=== PATIENT | male | born 1950 | race Caucasian/White ===

== ENCOUNTER 2020-06-30 01:14 | Emergency (ER) | payer SELFPAY ==
[2020-06-30 02:53] LABS: Absolute Lymphocytes (CBC) 1.1 K/uL (0.7-4.9); MPV 9.2 fL (7.6-11.3)
[2020-06-30 02:54] LABS: Protime INR 1.16
[2020-06-30 03:09] LABS: Basophils % 0.9 % (0-1.3); Lymphocytes % 20.1 % (15.3-44.8); RBC Red Blood Cell Count 3.91 M/uL (4.33-5.43)
[2020-06-30 03:25] LABS: ALT/SGPT 35 U/L (12-78); AST/SGOT 34 U/L (15-37); Albumin 3.9 g/dL (3.4-5.0); Alkaline Phosphatase 82 U/L (45-117); BUN Blood Urea Nitrogen 38 mg/dL (7-18); Bicarbonate 22 mmol/L (21-32); Bilirubin Direct 0.3 mg/dL (0-0.2); Glucose Level 104 mg/dL (74-106); Potassium 4.8 mmol/L (3.5-5.1); Protein, Total 7.9 g/dL (6.4-8.2); Sodium Level 141 mmol/L (136-145); Troponin (Emerg Dept Use Only) < 0.02 ng/mL (0.0-0.045)
[2020-06-30] MEDS ORDERED: LACTULOSE 20 GM/30 ML UCUP ONE (03:59)
--- NOTE | 2020-06-30 04:40 | ER ---
Nurse's Notes [facility] Name: Braulio Friedman Age: 70 yrs Sex: Male : 1950 Arrival Date: 06/30/2020 Time: 01:17 Bed 4 Private MD: Diagnosis: Hepatic Encephalopathy Presentation: 06/30 01:39 Chief complaint: EMS states: was toned for Pt being more disoriented and weak. Pt with Hx of Hepatic Encephalopathy due to Liver Cirrhosis. Pt was just discharged from [facility] for same reason. Coronavirus screen: Client denies travel out of the [place] in the last 14 days. At this time, the client does not indicate any symptoms associated with coronavirus-19. Ebola Screen: Patient negative for fever greater than or equal to 101.5 degrees Fahrenheit, and additional compatible Ebola Virus Disease symptoms Patient denies exposure to infectious person. Initial Sepsis Screen: Does the patient meet any 2 criteria? No. Patient's initial sepsis screen is negative. Does the patient have a suspected source of infection? Yes:. Risk Assessment: Do you want to hurt yourself or someone else? Patient reports no desire to harm self or others. Onset of symptoms was June 30, 2020. 01:39 Method Of Arrival: EMS: [facility] 01:39 Acuity: LORIN 3 Historical: - Allergies: 01:39 PENICILLINS; 01:39 Isosorbide Dinitrate; 01:39 Isosorbide Mononitrate; - Home Meds: 01:39 carbidopa-levodopa 25-100 mg Oral TbER 1 tab 3 times per day [Active]; spironolactone wh 50 mg Oral tab 1 tab once daily [Active]; tamsulosin 0.4 mg oral cp24 1 cap once daily [Active]; pantoprazole 40 mg oral TbEC 1 tab 2 times per day [Active]; magnesium oxide 400 mg Oral cap twice a day [Active]; nitroglycerin 0.4 mg SL subl 1 tab every 5 minutes [Active]; sertraline 25 mg oral tab 1 tab once daily [Active]; Xifaxan 550 mg oral tab 1 tab 2 times per day [Active]; - PMHx: 01:39 Liver Cancer; Liver Cirrhosis; Myocardial infarction; Hypertension; Hepatic wh Encephalopathy; - Immunization history:: Adult Immunizations up to date. - Social history:: Smoking status: Patient/guardian denies using. Screenin:42 Abuse screen: Denies threats or abuse. Denies injuries from another. Nutritional screening: No deficits noted. Tuberculosis screening: No symptoms or risk factors identified. Fall Risk Secondary diagnosis (15 points) Hepatic Encephalopathy. Assessment: 01:44 General: Appears in no apparent distress. Behavior is cooperative. Pain: Denies pain. Neuro: Level of Consciousness is awake, obeys commands, confused, Oriented to person. Cardiovascular: Heart tones S1 S2. Respiratory: Airway is patent Respiratory effort is even, unlabored, Respiratory pattern is regular, symmetrical, Breath sounds are clear bilaterally. GI: Abdomen is flat, non-distended, Abd is soft and non tender X 4 quads. : No signs and/or symptoms were reported regarding the genitourinary system. EENT: No signs and/or symptoms were reported regarding the EENT system. Derm: Skin is intact, is healthy with good turgor, Skin is pink, warm \T\ dry. normal. Musculoskeletal: Circulation, motion, and sensation intact. 02:45 Reassessment: Patient appears in no apparent distress at this time. No changes from previously documented assessment. Patient and/or family updated on plan of care and expected duration. Pain level reassessed. 03:06 Reassessment: Pt family initially refusing EKG stated PT didn't have chest pain, explained that we are just trying to check for heart rhythm or any cause of the weakness. Family agreed to EKG. Pt family refusing CXRAY stating Pt doesn't need to be xrayed instead just needed blood work for Ammonia, family stated we are just milking Medicare for unnecessary test, notified Charge. 03:09 Reassessment: Charge Nurse at bedside explaining POC. 04:00 Reassessment: Patient appears in no apparent distress at this time. No changes from previously documented assessment. Patient and/or family updated on plan of care and expected duration. Pain level reassessed. 05:28 Reassessment: Report given to Kobi Dickerson RN. 06:11 Reassessment: Patient appears in no apparent distress at this time. No changes from previously documented assessment. Patient and/or family updated on plan of care and expected duration. Pain level reassessed. Vital Signs: 01:44 BP 153 / 80; Pulse 74; Resp 18; Temp 98; Pulse Ox 99% ; Weight 67.13 kg; Height 6 ft. 1 wh in. (185.42 cm); 03:09 BP 153 / 78; Pulse 68; Resp 18; Pulse Ox 98% on R/A; wh 04:00 BP 127 / 71; Pulse 69; Resp 16; Pulse Ox 100% on R/A; wh 05:28 BP 110 / 60; Pulse 72; Resp 16; Pulse Ox 100% on R/A; wh 06:11 BP 119 / 74; Pulse 67; Resp 16; Pulse Ox 100% on R/A; wh 01:44 Body Mass Index 19.53 (67.13 kg, 185.42 cm) ED Course: 01:17 Patient arrived in ED. mw2 01:23 Richard Pritchard MD is Attending Physician. [facility] 01:34 Connie Jack is Primary Nurse. wh 01:41 Triage completed. wh 01:45 Patient has correct armband on for positive identification. Placed in gown. Bed in low wh position. Call light in reach. Side rails up X 1. classroom monitor on. Pulse ox on. NIBP on. 01:46 Arm band placed on right wrist. wh 02:00 Missed attempt(s): 22 gauge in left forearm. Bleeding controlled, band aid applied, catheter tip intact. 02:35 Inserted saline lock: 22 gauge in right forearm, using aseptic technique. Blood lp1 collected. 02:56 CT Head Brain wo Cont In Process Unspecified. EDMS 04:03 initiated transfer with Nolvia Costello from [facility] transfer center. mw2 04:23 doc to doc with the hospitalist contact center rep at [facility]. mw2 04:43 administrative approval given by Nolvia Costello/ patient has been accepted to [address] 10 C bed 1041/ Dr. Shukla has accepted the patient in transfer/ report to be called to [phone]. 06:11 No provider procedures requiring assistance completed. Patient transferred, IV remains in place. 07:34 Chest Single View XRAY In Process Unspecified. EDMS Administered Medications: 03:50 Drug: Lactulose 20 grams Volume: 30 ml; Route: PO; 06:11 Follow up: Response: No adverse reaction Outcome: 04:39 ER care complete, transfer ordered by MD. barker 06:12 Transferred by ground EMS to [facility], Transfer form completed. X-rays sent w/ patient. Note: Report given to [facility] 06:12 Condition: stable 06:12 Instructed on the need for transfer. 06:12 Patient left the ED. Signatures: Dispatcher [employer] Kendra Martinez RN RN lp1 Connie Jack Eileen Nj mw2 Richard Pritchard MD MD mh7 Corrections: (The following items were deleted from the chart) 01:44 01:34 Immunization history: Adult Immunizations unknown, [facility]
--- NOTE | 2020-06-30 04:40 | EDPHYS ---
Physician Documentation [facility] Name: Braulio Friedman Age: 70 yrs Sex: Male : 1950 Arrival Date: 06/30/2020 Time: 01:17 Bed 4 Private MD: ED Physician Richard Pritchard HPI: 06/30 02:36 This 70 yrs old Male presents to ER via EMS with complaints of General mh7 Weakness. 02:36 The patient presents with confusion. Onset: The symptoms/episode began/occurred today. mh7 Possible causes: Hepatic encephalopathy. Associated signs and symptoms: Pertinent positives: confusion, Pertinent negatives: abdominal pain, agitation, combativeness, diarrhea, shortness of breath, vomiting, weakness. Current symptoms: In the emergency department the patient's symptoms are unchanged from the initial presentation. Patient's baseline: Neuro: alert but confused, Motor: no deficits, Ambulation: walks with assist only, uses cane, Speech: normal for age, The patient has a previous history of hepatic encephalopathy. 02:55 Unable to obtain HPI due to altered mental status. The patient has experienced similar mh7 episodes in the past, multiple times. Historical: - Allergies: 01:39 PENICILLINS; wh 01:39 Isosorbide Dinitrate; wh 01:39 Isosorbide Mononitrate; wh - Home Meds: 01:39 carbidopa-levodopa 25-100 mg Oral TbER 1 tab 3 times per day [Active]; spironolactone wh 50 mg Oral tab 1 tab once daily [Active]; tamsulosin 0.4 mg oral cp24 1 cap once daily [Active]; pantoprazole 40 mg oral TbEC 1 tab 2 times per day [Active]; magnesium oxide 400 mg Oral cap twice a day [Active]; nitroglycerin 0.4 mg SL subl 1 tab every 5 minutes [Active]; sertraline 25 mg oral tab 1 tab once daily [Active]; Xifaxan 550 mg oral tab 1 tab 2 times per day [Active]; - PMHx: 01:39 Liver Cancer; Liver Cirrhosis; Myocardial infarction; Hypertension; Hepatic wh Encephalopathy; - Immunization history:: Adult Immunizations up to date. - Social history:: Smoking status: Patient/guardian denies using. ROS: 02:55 Unable to obtain ROS due to altered mental status. mh7 Exam: 02:55 Head/Face: Normocephalic, atraumatic. Eyes: Pupils equal round and reactive to light, mh7 extra-ocular motions intact. Lids and lashes normal. Conjunctiva and sclera are non-icteric and not injected. Cornea within normal limits. Periorbital areas with no swelling, redness, or edema. Neck: Trachea midline, no thyromegaly or masses palpated, and no cervical lymphadenopathy. Supple, full range of motion without nuchal rigidity, or vertebral point tenderness. No Meningismus. Chest/axilla: Normal chest wall appearance and motion. Nontender with no deformity. No lesions are appreciated. Cardiovascular: Regular rate and rhythm with a normal S1 and S2. No gallops, murmurs, or rubs. Normal PMI, no JVD. No pulse deficits. Respiratory: Lungs have equal breath sounds bilaterally, clear to auscultation and percussion. No rales, rhonchi or wheezes noted. No increased work of breathing, no retractions or nasal flaring. Abdomen/GI: Soft, non-tender, with normal bowel sounds. No distension or tympany. No guarding or rebound. No evidence of tenderness throughout. Back: No spinal tenderness. No costovertebral tenderness. Full range of motion. Skin: Warm, dry with normal turgor. Normal color with no rashes, no lesions, and no evidence of cellulitis. MS/ Extremity: Pulses equal, no cyanosis. Neurovascular intact. Full, normal range of motion. 02:55 Constitutional: The patient appears in no acute distress, alert, awake, confused 02:55 Neuro: Orientation: to person, Mentation: confused, Memory: unable to test, the patient refuses to cooperate, Cranial nerves: unable to test, the patient refuses to cooperate, Cerebellar function: unable to test, the patient refuses to cooperate, Motor: moves all fours, Sensation: is normal, Gait: not tested. Deep tendon reflexes are normal, Babinski testing is normal, seizure activity, is not displayed by the patient, Abnormal movements: there are no abnormal movements. Vital Signs: 01:44 BP 153 / 80; Pulse 74; Resp 18; Temp 98; Pulse Ox 99% ; Weight 67.13 kg; Height 6 ft. 1 wh in. (185.42 cm); 03:09 BP 153 / 78; Pulse 68; Resp 18; Pulse Ox 98% on R/A; 04:00 BP 127 / 71; Pulse 69; Resp 16; Pulse Ox 100% on R/A; 05:28 BP 110 / 60; Pulse 72; Resp 16; Pulse Ox 100% on R/A; 06:11 BP 119 / 74; Pulse 67; Resp 16; Pulse Ox 100% on R/A; 01:44 Body Mass Index 19.53 (67.13 kg, 185.42 cm) MDM: 04:37 Differential Diagnosis: CVA, electrolyte abnormality, alcohol intoxication, 7 hypoglycemia, intracranial bleed, overdose, pneumonia, sepsis, UTI, volume depletion, Hepatic Encephalopathy. Data reviewed: vital signs, nurses notes, EMS record, old medical records, lab test result(s), cardiac enzymes, CBC, drug level(s), electrolytes, urinalysis, EKG, radiologic studies, CT scan, plain films. Data interpreted: Pulse oximetry: on room air is 98 %. Interpretation: normal. Counseling: I had a detailed discussion with the patient and/or guardian regarding: the historical points, exam findings, and any diagnostic results supporting the discharge/admit diagnosis, the presence of at least one elevated blood pressure reading (>120/80) during this emergency department visit, lab results, radiology results, the need to transfer to another facility, Family Request. Response to treatment: the patient's symptoms have mildly improved after treatment. 04:39 Patient medically screened. 06/30 01:37 Order name: Acetaminophen; Complete Time: 03:38 06/30 01:37 Order name: Basic Metabolic Panel; Complete Time: 03: 06/30 01:37 Order name: CBC with Diff; Complete Time: 03:38 06/30 01:37 Order name: ETOH Level; Complete Time: 03:38 06/30 01:37 Order name: Hepatic Function; Complete Time: 03: 06/30 01:37 Order name: PT-INR; Complete Time: 03:18 06/30 01:37 Order name: Ptt, Activated; Complete Time: 03:18 [facility] 06/30 01:37 Order name: Salicylate; Complete Time: 03:38 06/30 01:37 Order name: Troponin (emerg Dept Use Only); Complete Time: :38 [facility] 06/30 01:37 Order name: AMMONIA; Complete Time: 03:18 [facility] 06/30 01:37 Order name: Chest Single View XRAY [facility] 06/30 01:37 Order name: CT Head Brain wo Cont [facility] 06/30 01:37 Order name: EKG; Complete Time: 01:38 [facility] 06/30 01:37 Order name: EKG - Nurse/Tech; Complete Time: 02:20 [facility] 06/30 01:37 Order name: IV Saline Lock; Complete Time: 02:32 [facility] 06/30 01:37 Order name: Labs collected and sent; Complete Time: 02:32 Administered Medications: 03:50 Drug: Lactulose 20 grams Volume: 30 ml; Route: PO; 06:11 Follow up: Response: No adverse reaction Disposition: 06/30/20 04:39 Transfer ordered to [facility]. Diagnosis is Hepatic Encephalopathy. - Reason for transfer: Higher level of care. - Accepting physician is Dr. Shukla. - Condition is Stable. - Problem is an acute exacerbation. - Symptoms have improved. Signatures: Dispatcher [employer] EDMS Connie Jack Richard Pritchard MD MD mh7 Corrections: (The following items were deleted from the chart) 01:44 01:34 Immunization history: Adult Immunizations unknown, [facility] 04:44 04:39 06/30/2020 04:39 Transfer ordered to [facility]. Diagnosis is Hepatic 7 Encephalopathy. Reason for transfer: Higher level of care. Accepting physician is Dr. Cazares. Condition is Stable. Problem is an acute exacerbation. Symptoms have improved. 7 06:12 04:44 06/30/2020 04:39 Transfer ordered to [facility]. Diagnosis is Hepatic Encephalopathy. Reason for transfer: Higher level of care. Accepting physician is Dr. Shukla. Condition is Stable. Problem is an acute exacerbation. Symptoms have improved. 7
--- NOTE | 2020-06-30 09:02 | RAD REPORT ---
EXAM DESCRIPTION: RAD - Chest Single View - 06/30/2020 7:33 am CLINICAL HISTORY: AMS Chest pain. COMPARISON: CHEST SINGLE VIEW dated 05/04/2011; CHEST PA AND LAT 2 VIEW dated 03/03/2009 FINDINGS: Portable technique limits examination quality. Emphysematous changes are present throughout the lungs. Small opacity is present in the peripheral as pect of the right mid lung suspicious for a small infiltrate or pneumonia. The heart is normal in siz e. No displaced fractures.
[2020-06-30 11:57] VITALS: TEMP 98
[2020-06-30 12:01] VITALS: O2SAT 100
[2020-06-30 12:07] VITALS: BP 119/74
--- NOTE | 2020-06-30 12:07 | RAD REPORT ---
EXAM DESCRIPTION: CT Head Brain Wo Cont CLINICAL HISTORY: CONFUSED COMPARISON: CT head 01/16/2015 images without report TECHNIQUE: Head/brain axial images acquired without contrast. Coronal and sagittal reformats created . Exam performed according to departmental dose-optimization program which includes automated exposur e control, adjustment of mA and/or kV according to patient size, and/or use of iterative reconstructi on technique. FINDINGS: No midline shift, mass effect, intracranial hemorrhage, or hydrocephalus. CSF spaces appear overall mildly enlarged likely representing age-appropriate cerebral volume loss. Paranasal sinuses and mastoid air cells clear. No skull fracture or significant skull lesion. All teeth absent. IMPRESSION: No CT evidence of acute intracranial abnormality. Electronically signed by: Bill Valderrama MD 06/30/2020 3:03 AM ENRICHMENT TEACHER Due to temporary technical issues with the PACS/Fluency reporting system, reports are being signed by the in house radiologist without review as a courtesy to ensure prompt reporting. The interpreting r adiologist is fully responsible for the content of the report.
== END 2020-06-30 06:12 | disposition short-term general hospital (02) ==
LOC: ER 01:14
DX: K72.90 Hepatic failure, unspecified without coma (principal); Z85.05 Personal history of malignant neoplasm of liver; K74.60 Unspecified cirrhosis of liver; I10 Essential (primary) hypertension; I25.2 Old myocardial infarction; Z88.0 Allergy status to penicillin; Z88.8 Allergy status to other drugs, medicaments and biological substances
CPT/HCPCS: 36415; 70450; 71045; 80048; 80076; 80320; 80329; 82140; 84484; 85025; 85610; 85730; 93005; 99285